=== PATIENT | male | born 1995 | race Caucasian/White ===

== ENCOUNTER 2019-01-23 14:48 | Emergency (ER) | payer OTHER ==
[2019-01-23 15:50] VITALS: BP 115/73
[2019-01-23] MEDS ORDERED: Ibuprofen TAB* 600 MG PO ONE (16:20)
--- NOTE | 2019-01-23 16:28 | UC ---
FLU HPI - HPI Summary HPI Summary: 23-year-old male presents with complaints of general malaise, body aches, shaking chills, nasal congestion, sinus pressure, and occasional cough for over a week. States approximately 4 days ago started with a sore throat as well as progressively gotten worse. He reports that he had been snorting some MDMA prior to the onset of his symptoms. Denies ear pain, dysphagia, chest pain, shortness of breath, abdominal pain, nausea, vomiting, or diarrhea. - History of Current Complaint Chief Complaint: UCGeneralIllness Stated Complaint: HEADACHE,SINUS,SORE THROAT Time Seen by Provider: 01/23/19 16:04 Hx Obtained From: Patient Pain Intensity: 5 - Allergy/Home Medications Allergies/Adverse Reactions: Allergies Allergy/AdvReac Type Severity Reaction Status Date / Time No Known Allergies Allergy Verified 01/23/19 15:41 Home Medications: Home Medications Acetaminophen [Tylenol Extra Strength] 1,000 - 1,500 mg PO Q6H PRN 01/23/19 [ History Confirmed 01/23/19] Ibuprofen TAB* [Advil TAB*] 600 mg PO Q6H PRN 01/23/19 [History Confirmed ] PMH/Surg Hx/FS Hx/Imm Hx Previously Healthy: Yes - Denies significant PMH - Surgical History Surgical History: None - Family History Known Family History: Positive: Non-Contributory - Social History Occupation: Student Lives: Dormitory/Roommates Alcohol Use: Weekly Substance Use Type: Marijuana Substance Use Comment - Amount & Last Used: MDMA Smoking Status (MU): Current Some Day Smoker Type: Cigarettes Length of Time of Smoking/Using Tobacco: 2 yrs Have You Smoked in the Last Year: Yes Review of Systems All Other Systems Reviewed And Are Negative: Yes Constitutional: Positive: Fever, Chills Skin: Negative: Rash Eyes: Negative: Drainage, Eye Redness ENT: Positive: Sore Throat, Nasal Discharge, Sinus Congestion. Negative: Ear Ache, Sinus Pain/Tenderness Respiratory: Positive: Cough. Negative: Shortness Of Breath Cardiovascular: Negative: Palpitations, Chest Pain Gastrointestinal: Negative: Abdominal Pain, Vomiting, Diarrhea, Nausea Genitourinary: Positive: Negative Musculoskeletal: Positive: Negative Neurological: Positive: Negative Is Patient Immunocompromised?: No Physical Exam - Summary Physical Exam Summary: GENERAL APPEARANCE: Well developed, well nourished, alert and cooperative, and appears to be in no acute distress. EYES: Conjunctiva clear. No drainage. EARS: External auditory canals and tympanic membranes clear, hearing grossly intact. NOSE: Moderate-severe nasal congestion with mucosal erythema and edema. Maxillary sinus tenderness. THROAT: Pharyngeal erythema. 3+ tonsils without exudate. Uvula midline. NECK: Neck supple, non-tender. Bilateral anterior cervical lymphadenopathy noted. CARDIAC: Normal S1 and S2. No S3, S4 or murmurs. Rhythm is regular. There is no peripheral edema, cyanosis or pallor. Extremities are warm and well perfused. Capillary refill is less than 2 seconds. Peripheral pulses intact. LUNGS: Clear to auscultation without rales, rhonchi, wheezing or diminished breath sounds. Non-productive cough. ABDOMEN: Positive bowel sounds. Soft, nondistended, nontender. No guarding or rebound. No masses or hepatosplenomegally. MUSKULOSKELETAL: ROM intact to all extremities. No joint erythema or tenderness. Normal muscular development. Normal gait. SKIN: Skin normal color, texture and turgor with no lesions or eruptions. Triage Information Reviewed: Yes Vital Signs: Initial Vital Signs Temp 102.1 F 01/23/19 15:43 Pulse 111 01/23/19 15:43 Resp 16 01/23/19 15:43 BP 115/73 01/23/19 15:43 Pulse Ox 99 01/23/19 15:43 Vital Signs Reviewed: Yes Flu Course/Dx - Course Course Of Treatment: 23-year-old male presents with complaints of general malaise, body aches, shaking chills, nasal congestion, sinus pressure, and occasional cough for over a week. States approximately 4 days ago started with a sore throat as well as progressively gotten worse. He reports that he had been snorting some MDMA prior to the onset of his symptoms. Denies ear pain, dysphagia, chest pain, shortness of breath, abdominal pain, nausea, vomiting, or diarrhea. He was noted to have an elevated temp of 102.1 F. Mildly tachycardic otherwise vital signs stable. Exam remarkable for moderate to severe nasal congestion with some erythema and edema, maxillary sinus tenderness, pharyngeal erythema, 3+ tonsils without exudate, anterior cervical lymphadenopathy, and a nonproductive cough. Rapid flu negative. Rapid strep negative. Patient was given a dose of ibuprofen 600 mg for the fever and his temperature was returning to baseline by the time of discharge. Patient was complaining that the acetaminophen and ibuprofen were not sufficiently managing his sore throat and considering the amount of erythema and edema present I did give him a dose of dexamethasone 8 mg by mouth in the clinic. The history of snorting MDMA and the persistent fever and shaking chills and going to treat him for an acute bacterial rhinosinusitis. With his complaints of severe sore throat I cannot rule out the possibility of an early peritonsillar abscess even though there is no tonsillar or uvular deviation noted on exam. I will start him on Augmentin 875 mg twice a day 10 days as well as recommend symptomatic treatment for his rhinosinusitis. He is to return here or follow up with [facility] if symptoms do not improve. Dysmetric and warning symptoms requiring immediate evaluation the emergency room were reviewed with the patient. Verbalized understanding and agrees with plan of care. - Differential Dx/Diagnosis Differential Diagnosis/HQI/PQRI: Bronchitis, Influenza, Pneumonia, Upper Respiratory Infection Provider Diagnosis: Acute rhinosinusitis, Pharyngitis Discharge - Sign-Out/Discharge Documenting (check all that apply): Patient Departure All imaging exams completed and their final reports reviewed: No Studies - Discharge Plan Condition: Stable Disposition: HOME Prescriptions: Amoxicillin/Clavulanate TAB* [Augmentin TAB 875*] 875 mg PO BID #20 tab Fluticasone NASAL SPRAY 50MCG* [Flonase NASAL SPRAY 50MCG*] 2 spray BOTH NARES DAILY #1 btl Patient Education Materials: Pharyngitis (ED), Rhinosinusitis (ED) Referrals: No Primary Care Phys,NOPCP [Primary Care Provider] - Additional Instructions: Your history and exam are consistent with a rhinosinusitis. With the fever and worsening of symptoms we will treat you with an antibiotic. Start Augmentin 875 mg 1 tab twice a day for 10 days. Take with food to avoid upset stomach. Be sure to complete the entire course even if feeling better. You were given a steroid called dexamethasone to help with the pain and swelling of your sore throat. This is a long-acting steroid and will be in your system for up to 3 days. Drink plenty of fluids to avoid dehydration especially if you are running any fever. Use a saline rinse kit such as Neti Pot or NeilMed at least twice a day to help thin secretions and promote drainage of the sinuses. Use fluticasone (Flonase) nasal spray 2 sprays each nostril once daily. Take over the counter acetaminophen (Tylenol) or ibuprofen (Advil, Motrin) according to directions as needed for pain or fever. Use salt water gargles several times a day if you have a sore throat. You may also use Chloraseptic spray or Cepacol lonzenges according to directions which contain a numbing medication and can provide some temporary relief from your sore throat. Return here or follow up with [facility] if symptoms persist. Seek immediate medical attention in the emergency room if you have fever greater than 100.5 F despite taking acetaminophen or ibuprofen, have chest pain , difficulty breathing, are unable to swallow, or have any worsening of symptoms. - Billing Disposition and Condition Condition: STABLE Disposition: Home
[2019-01-23 16:40] LABS: Influenza A Molecular NEGATIVE (Negative); Influenza B Molecular NEGATIVE (Negative)
[2019-01-23] MEDS ORDERED: Dexamethasone TAB* 4 MG PO ONE (17:21)
== END 2019-01-23 17:35 | disposition home or self-care (01) ==
LOC: UCCORT 14:48
DX: J01.90 Acute sinusitis, unspecified (principal); J02.9 Acute pharyngitis, unspecified; Z72.0 Tobacco use
CPT/HCPCS: 87651; 99202; A9270-GY; G0463; J8540

== ENCOUNTER 2019-11-28 15:26 | Emergency (ER) | payer OTHER, BC | END 2019-11-28 15:50 | disposition left against medical advice (07) | LOC: UCCORT 15:26 | DX: Z53.21 Procedure and treatment not carried out due to patient leaving prior to being seen by health care provider (principal) ==

== ENCOUNTER 2019-12-22 14:26 | Emergency (ER) | payer OTHER, BC | END 2019-12-22 14:37 | disposition left against medical advice (07) | LOC: UCCORT 14:26 | DX: Z53.21 Procedure and treatment not carried out due to patient leaving prior to being seen by health care provider (principal) ==